=== PATIENT | female | born 1995 | race Asian ===

== ENCOUNTER 2016-12-23 23:42 | Emergency (ER) | payer OTHER ==
[2016-12-23 23:48] VITALS: BP 99/59; PULSE 72; RESP 16; TEMP 97.9; O2SAT 96
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
[2016-12-24] MEDS: TDAP ADULT 0.5 ML INJ (BOOSTRIX) IM ONE (00:25)
== END 2016-12-24 00:36 | disposition home or self-care (01) ==
PROC: 2W28X4Z Dressing of Right Upper Extremity using Bandage (ICD-10-PCS; principal; 2016-12-23)
DX: T22.211A Burn of second degree of right forearm, initial encounter (principal); T31.0 Burns involving less than 10% of body surface; Z23 Encounter for immunization; X19.XXXA Contact with other heat and hot substances, initial encounter; Y99.8 Other external cause status